=== PATIENT | female | born 1930 | race Caucasian/White ===

== ENCOUNTER 2016-12-05 03:35 | Inpatient (IN) ==
[2016-11-29 10:20] LABS: MANUAL DIFF NEEDED? NO
[2016-11-29 10:20] LABS: URINE MICRO REVIEW NEEDED? NO; URINE SOURCE CLEAN CATCH
[2016-11-29 10:23] LABS: BASO% 0.8 % (0.0-0.8); EOS# 0.22 X1000 (0.0-0.7); EOS% 2.7 % (0.0-10.0); HEMATOCRIT 38.8 % (37.0-47.0); HEMOGLOBIN 13.1 g/dL (12.0-16.0); LYMPH# 2.47 X1000 (1.2-3.4); LYMPH% 29.9 % (20.5-51.1); MCH 31.6 PG (27-31); MCHC 33.8 g/dL (33-37); MCV 93.5 FL (81-99); MONO# 0.86 X1000 (0.11-0.59); MONO% 10.4 % (1.7-9.3); MPV 9.9 FL (7.4-10.4); NEUT% 56.2 % (42.2-75.2); PLT 255 X1000 (130-400); RBC 4.15 XMIL (4.2-5.4)
[2016-11-29 10:25] LABS: BILIRUBIN URINE NEGATIVE (NEGATIVE); BLOOD URINE NEGATIVE (NEGATIVE); COLOR YELLOW; GLUCOSE URINE NEGATIVE (NEGATIVE); LEUKOCYTES URINE NEGATIVE (NEGATIVE); NITRITE URINE NEGATIVE (NEGATIVE); PH URINE 6.5; PROTEIN URINE NEGATIVE (NEGATIVE); SP GRAVITY URINE 1.006; TURBIDITY URINE CLEAR (CLEAR); UROBILINOGEN URINE NORMAL (NORMAL)
[2016-11-29 10:26] LABS: UR EPITHELIAL CELLS <10 /HPF (<10); URINE BACTERIA NEGATIVE /HPF; URINE RBC <10 /HPF (<10); URINE WBC <10 /HPF (<10)
[2016-11-29 10:34] LABS: INR 0.96; PROTIME 10.1 Seconds (9.2-11.7); PTT 20.9 Seconds (22.0-36.0)
[2016-11-29 10:48] LABS: CALCIUM 10.1 mg/dL (8.8-10.2); POTASSIUM 4.1 mmol/L (3.5-5.1)
[2016-12-05] MEDS ORDERED: PEPCID ONE (12:11)
[2016-12-05] MEDS ORDERED: REGLAN ONE (12:11)
[2016-12-05] MEDS ORDERED: COLACE ONE (12:11)
[2016-12-05] MEDS ORDERED: CELEBREX ONE (12:12)
[2016-12-05] MEDS ORDERED: LYRICA ONE (12:12)
[2016-12-05] MEDS ORDERED: LR 1,000 ML ONE ×2 (12:12→15:19)
[2016-12-05] MEDS ORDERED: KEFZOL 2 GM/D5W 2 GM/50 ML IVPB ONE (12:12)
[2016-12-05] MEDS ORDERED: TORADOL ONE (12:28)
[2016-12-05] MEDS ORDERED: SODIUM CHLORIDE 0.9% ONE (12:29)
[2016-12-05] MEDS ORDERED: CYKLOKAPRON 1,000 MG/NS 1,000 MG/100 ML IVPB ONE ×2 (12:29→12:30)
[2016-12-05] MEDS ORDERED: MARCAINE 0.25% PF/EPI 1:200,000 ONE (12:29)
[2016-12-05] MEDS ORDERED: VANCOMYCIN ONE (12:29)
[2016-12-05] MEDS ORDERED: DURAMORPH ONE (12:29)
[2016-12-05] MEDS ORDERED: EXPAREL 1.3% ONE (12:30)
[2016-12-05] MEDS ORDERED: NEOSPORIN G.U. IRRIGANT ONE (12:30)
[2016-12-05] MEDS ORDERED: CLAVE SECONDARY SET 11953 ONE ×2 (12:31→15:19)
[2016-12-05 13:55] LABS: URINE MICRO REVIEW NEEDED? NO; URINE SOURCE CATH
[2016-12-05 14:02] LABS: BILIRUBIN URINE NEGATIVE (NEGATIVE); BLOOD URINE NEGATIVE (NEGATIVE); COLOR STRAW; GLUCOSE URINE NEGATIVE (NEGATIVE); LEUKOCYTES URINE NEGATIVE (NEGATIVE); NITRITE URINE NEGATIVE (NEGATIVE); PH URINE 6.5; PROTEIN URINE NEGATIVE (NEGATIVE); SP GRAVITY URINE 1.009; TURBIDITY URINE CLEAR (CLEAR); UROBILINOGEN URINE NORMAL (NORMAL)
[2016-12-05 14:03] LABS: UR EPITHELIAL CELLS <10 /HPF (<10); URINE BACTERIA NEGATIVE /HPF; URINE RBC <10 /HPF (<10); URINE WBC <10 /HPF (<10)
[2016-12-05] MEDS ORDERED: FENTANYL ONE (14:06)
[2016-12-05] MEDS ORDERED: DIPRIVAN 1% ONE (14:06)
[2016-12-05] MEDS ORDERED: NEO-SYNEPHRINE ONE (15:18)
[2016-12-05] MEDS ORDERED: ZOFRAN ONE (15:18)
[2016-12-05] MEDS ORDERED: STERILE WATER INJ. ONE (15:18)
[2016-12-05] MEDS ORDERED: OFIRMEV 1000 MG/ISOTONIC SOLN 1,000 MG/100 ML BOTTLE ONE (15:19)
[2016-12-05] MEDS ORDERED: EPHEDRINE ONE (15:19)
[2016-12-05] MEDS ORDERED: XYLOCAINE-MPF 2% ONE (15:19)
[2016-12-05] MEDS ORDERED: DECADRON ONE (15:19)
[2016-12-05] MEDS ORDERED: NS 1,000 ML ONE (15:41)
[2016-12-05] MEDS: MORPHINE ONE ×2 (15:42→15:55)
--- NOTE | 2016-12-05 16:41 | OPERATIVE NOTE ---
PROCEDURE DATE: 12/05/2016 PREOPERATIVE DIAGNOSIS: Degenerative osteoarthritis of the right knee. POSTOPERATIVE DIAGNOSIS: Degenerative osteoarthritis of the right knee. PROCEDURE: Right total knee arthroplasty with a DePuy Attune size 5 posterior stabilized femur, size 6 tibial base plate, a 6 mm rotating platform tibial insert, and a 38 mm medialized anatomic patella. SURGEON: Gianfranco Cortez MD. [facility] NURSE: LYNDSAY Nixon SECOND CROZE CUTTER HELPER: PETER King ANESTHESIA: General. IV FLUIDS: 1100 mL lactated Ringer's. ESTIMATED BLOOD LOSS: 30 mL. TOURNIQUET TIME: 80 minutes at 350 mmHg. COMPLICATIONS: None. INDICATION: The patient is a pleasant 86-year-old female with chronic history of pain and discomfort of the right knee. Continued pain and discomfort despite appropriate nonoperative treatment. X-rays revealed degenerative osteoarthritis. Recommendation to proceed with right total knee arthroplasty was offered. Risks and benefits of surgery were explained, including the risks of anesthesia, , bleeding, infection, failure to relieve pain, postoperative stiffness, nerve injury, blood clots, and other imponderables. All questions answered. The patient and family wished to proceed with surgery. DETAILS OF OPERATION: The patient was taken to the operating room and placed supine on the operating table. Once adequate anesthesia was obtained, the patient's right lower extremity was subsequently prepped and draped in usual sterile fashion. Esmarch was used to exsanguinate the right lower extremity and the tourniquet was inflated to 350 mmHg. A standard anterior incision made with skin knife. Medial and lateral skin envelopes were developed. Standard medial parapatellar arthrotomy was then performed. Patella fat pad was excised. Retractors were then placed superior. Approximately 1 cm anterior the PCL insertion, starting reamer was passed. Intramedullary guide with a distal femoral cutting block was pinned in position. Distal femoral cut was then performed in standard fashion. A sizing block was placed and measured size 5. Corresponding pins were placed. A size 5 cutting block was placed in position. Anterior, posterior, and chamfer cuts were then made. After this had been performed, attention turned to the proximal tibia for further resection of the ACL and PCL was performed. Using the extramedullary guide, the proximal tibia cutting block was pinned in position. Proximal tibia was then resected in standard fashion. A curved osteotome was used to remove posterior osteophytes and the medial and lateral meniscus was excised. A spacer block was placed and had good soft tissue balancing. Attention turned the proximal tibia and a size 6 tibial tray appeared to correct size. This was pinned in position. Followed by a central reamer and a fin punch. A box cutting guide was then pinned in position on the distal femur. A box cut was performed. This followed by the femoral trial component and had good fit. The 2 lug holes were drilled. The trial tibial insert was then placed and had good soft tissue balancing. The patella was everted and resected in standard fashion. A size 38 appeared to be correct size. Corresponding holes were drilled. The trial patella component was then placed and had good patellofemoral tracking. The trial components were then removed. Copious irrigation was then performed with antibiotic pulsatile lavage, while vancomycin was mixed with cement on back table. Sequential cementing was then performed, first with the tibial tray and the excess cement was removed with the [place], followed by the femoral component and excess cement removed with a [place], followed by the trial tibial insert in full extension and axial loading was maintained while cement cured. Patella cemented in standard fashion. Patella clamp was placed. While the cement was curing, Exparel was placed in the soft tissue, as well as subcutaneous tissue. The size 6 mm rotating platform tibial insert had good stability and good range of motion and trial components were then removed. Exparel was placed deep in posterior capsule. The wound was copiously irrigated once again. This was followed by the 6 mm rotating platform tibial insert. The knee was then carried through range of motion. Had good range of motion, good stability, and good patellofemoral tracking. A 1/8 Hemovac drain was placed and was not sewn in. Copious irrigation was then performed once again with antibiotic pulsatile lavage. A #1 Vicryl was used to repair the arthrotomy, followed by 2-0 Vicryl, subcu tissue, and skin yemi. Adaptic, sterile 4x4, Webril, cryo unit, and Arsen wrap was applied to the right lower extremity. The patient tolerated the procedure well with no complications. She was transferred to the recovery room in stable condition. cc: Gianfranco Cortez MD
[2016-12-05] MEDS ORDERED: MORPHINE IV PRN (17:24)
[2016-12-05] MEDS ORDERED: OXY IR PO PRN (17:24)
[2016-12-05] MEDS ORDERED: ZOFRAN PO PRN (17:24)
[2016-12-05] MEDS ORDERED: MILK OF MAGNESIA PO PRN (17:24)
[2016-12-05] MEDS: NS 1,000 ML IV SCH (19:18)
[2016-12-05] MEDS: ARIMIDEX PO SCH ×2 (19:47→19:55)
[2016-12-05] MEDS: LIPITOR PO SCH (19:50)
[2016-12-05] MEDS: ZYLOPRIM PO SCH (19:50)
[2016-12-05] MEDS: NEURONTIN PO SCH (21:08)
[2016-12-05] MEDS: KEFZOL 2 GM/D5W 2 GM/50 ML IVPB IV SCH (21:08)
[2016-12-05] MEDS: TYLENOL PO SCH (21:09)
[2016-12-05] MEDS: LOPRESSOR PO SCH (21:10)
[2016-12-06] MEDS: ATIVAN PO SCH ×2 (02:44→20:40)
[2016-12-06] MEDS: TYLENOL PO SCH ×4 (03:04→20:40)
[2016-12-06 05:48] LABS: HEMOGLOBIN 10.6 g/dL (12.0-16.0)
[2016-12-06 05:58] LABS: CALCIUM 8.8 mg/dL (8.8-10.2); POTASSIUM 4.5 mmol/L (3.5-5.1)
[2016-12-06] MEDS: KEFZOL 2 GM/D5W 2 GM/50 ML IVPB IV SCH (06:20)
[2016-12-06] MEDS: XARELTO PO SCH (06:20)
[2016-12-06] MEDS: NS 1,000 ML IV SCH (06:21)
--- NOTE | 2016-12-06 07:40 | Diag Imaging Result Document ---
PROCEDURE NAME: KNEE 1-2 VIEWS-RIGHT - 12/05/2016 RIGHT KNEE 2 VIEWS: FINDINGS: There has been total knee arthroplasty. There appears to be normal alignment and no evidence of acute fracture or dislocation is present. IMPRESSION: Postsurgical changes.
--- NOTE | 2016-12-06 08:42 | PROGRESS NOTE ---
DATE: 12/06/2016 SUBJECTIVE: The patient is a pleasant 86-year-old female, who is 1 day status post right total knee arthroplasty. The patient is currently resting comfortably. Has no complaints. She rested well through the night. OBJECTIVE: On physical exam, her right lower extremity dressing is intact. Calf is soft. She has active dorsiflexion and plantar flexion. She is neurovascularly intact distally. LABORATORY DATA: Her hemoglobin is 10.1, hematocrit 32.0. IMPRESSION: Postoperative day #1, status post right total knee arthroplasty. PLAN: At this point, we will change her dressing and discontinue her drain. We will also Hep- Lock her IV. We will mobilize with physical therapy. We will consult [facility] for inpatient rehabilitation. cc: Gianfranco Cortez MD
[2016-12-06] MEDS ORDERED: DECADRON IV ONE (09:00)
[2016-12-06] MEDS: CYMBALTA PO SCH (09:03)
[2016-12-06] MEDS: LIPITOR PO SCH ×2 (09:03→10:26)
[2016-12-06] MEDS: PEPCID PO SCH (09:04)
[2016-12-06] MEDS: FERROUS SULFATE PO SCH (09:04)
[2016-12-06] MEDS: MIRALAX PO SCH ×2 (09:05→09:30)
[2016-12-06] MEDS: LOPRESSOR PO SCH ×2 (09:05→20:40)
[2016-12-06] MEDS: ARIMIDEX PO SCH (09:05)
[2016-12-06] MEDS: ZYLOPRIM PO SCH (09:07)
[2016-12-06] MEDS: NEURONTIN PO SCH (20:40)
[2016-12-07] MEDS: TYLENOL PO SCH ×4 (03:41→21:50)
[2016-12-07] MEDS: XARELTO PO SCH (05:14)
[2016-12-07 05:51] LABS: HEMATOCRIT 30.3 % (37.0-47.0); HEMOGLOBIN 10.1 g/dL (12.0-16.0)
[2016-12-07] MEDS: LIPITOR PO SCH (08:37)
[2016-12-07] MEDS: CYMBALTA PO SCH (08:37)
[2016-12-07] MEDS: LOPRESSOR PO SCH ×2 (08:38→21:49)
[2016-12-07] MEDS: PEPCID PO SCH (08:39)
[2016-12-07] MEDS: ARIMIDEX PO SCH (08:39)
[2016-12-07] MEDS: MIRALAX PO SCH (08:40)
[2016-12-07] MEDS: FERROUS SULFATE PO SCH (08:40)
[2016-12-07] MEDS: ZYLOPRIM PO SCH (08:41)
[2016-12-07] MEDS: OXY IR PO PRN ×2 (14:52→21:51)
--- NOTE | 2016-12-07 14:58 | DISCHARGE SUMMARY ---
ADMISSION DATE: 12/05/2016 DISCHARGE DATE: 12/07/2016 ADMITTING DIAGNOSIS: Degenerative osteoarthritis of the right knee. DISCHARGE DIAGNOSIS: Degenerative osteoarthritis of the right knee status post right total knee arthroplasty. BRIEF HISTORY: Patient is a pleasant, 86-year-old female with chronic history of worsening pain and discomfort of the right knee. Continued pain and discomfort despite appropriate nonoperative treatment. X-rays revealed significant underlying degenerative osteoarthritis. Recommendation to proceed right total knee arthroplasty was offered. Risks and benefits were discussed and all questions were answered. HOSPITAL COURSE AND TREATMENT: Patient was admitted to the hospital and underwent a right total knee arthroplasty. The patient tolerated the procedure well. She had an uneventful postop course. By postop day #2, her hemoglobin and hematocrit had stabilized at 10.1 and 30.3 and she was asymptomatic. It was felt the patient would benefit from inpatient rehabilitation and patient was agreeable to this. Prior to discharge, the patient is afebrile, tolerating regular diet. Her wound looked good. There are no signs or symptoms of infection. Her pain was well controlled with p.o. medication. MEDICATIONS: 1. OxyIR 5 mg 1 p.o. q.4 hours p.r.n. pain. 2. Xarelto 10 mg p.o. daily x14 days. 3. For remaining medications please see medication list. DISCHARGE INSTRUCTIONS: 1. The patient will be discharged for inpatient rehabilitation. 2. Consult physical therapy for full weightbearing right lower extremity and range of motion and gait training per total knee protocol. 3. DC yemi in 11 days. 4. Follow up in the office in 3-4 weeks. cc: Gianfranco Cortez MD
--- NOTE | 2016-12-07 15:48 | Diag Imaging Result Document ---
PROCEDURE NAME: CHEST-PORTABLE - 12/07/2016 PORTABLE CHEST: COMPARISON: 04/25/2016. FINDINGS: The patient has a right sided pacemaker. The lungs are well expanded. The heart is not enlarged. The vessels are not distended. No pneumonia. No pleural effusions identified. There are surgical clips in the left axilla. IMPRESSION: Negative chest.
[2016-12-07] MEDS: NEURONTIN PO SCH (21:49)
[2016-12-07] MEDS: ATIVAN PO SCH (21:50)
[2016-12-08 05:51] LABS: HEMATOCRIT 28.5 % (37.0-47.0); HEMOGLOBIN 9.5 g/dL (12.0-16.0)
[2016-12-08] MEDS: XARELTO PO SCH (05:57)
[2016-12-08] MEDS: TYLENOL PO SCH ×2 (05:57→09:06)
[2016-12-08 07:32] VITALS: BP 143/74
[2016-12-08] MEDS: MIRALAX PO SCH (09:05)
[2016-12-08] MEDS: LOPRESSOR PO SCH (09:06)
[2016-12-08] MEDS: CYMBALTA PO SCH (09:06)
[2016-12-08] MEDS: FERROUS SULFATE PO SCH (09:06)
[2016-12-08] MEDS: PEPCID PO SCH (09:07)
[2016-12-08] MEDS: ARIMIDEX PO SCH (09:07)
[2016-12-08] MEDS: LIPITOR PO SCH (09:07)
[2016-12-08] MEDS: ZYLOPRIM PO SCH (09:08)
[2016-12-08] MEDS: OXY IR PO PRN (09:08)
== END 2016-12-08 10:18 ==
LOC: SURHOLD 03:35 → 4N 14:47
PROVIDERS: ADMIT Orthopaedic Surgery Adult Reconstructive Orthopaedic Surgery; ATTEND Orthopaedic Surgery Adult Reconstructive Orthopaedic Surgery